=== PATIENT | female | born 1990 | race Caucasian/White ===

== ENCOUNTER 2016-12-19 20:16 | Emergency (ER) | payer OTHER ==
[~2016-12-19] VITALS: Ht 172.7 cm; Wt 123.0 kg
[2016-12-19 20:21] VITALS: BP 181/104; PULSE 87; RESP 18; O2SAT 96
[2016-12-19] MEDS ORDERED: Lidocaine 1%-Epi 1:100,000 20 mL Inj ONE (21:37)
--- NOTE | 2016-12-19 21:41 | ED.REPORT ---
HPI-Hand Prob/Inj Date of Service Dec 19, 2016 ED Provider: Olegario Pena MD This is a 26 year old female with no known past medical history who presents to the emergency department for a left hand laceration. Patient states around 745 PM, she was cutting avacados with a serrated knife and cut herself on the left palm, just proximal to her 2nd digit. She has applied pressure to the wound, but she has been bleeding since then. She denies any numbness, weakness, swelling. She is still able to move all fingers with full range of motion. She has no personal or family history of bleeding disorders. Her last tetanus was around 10 years ago. her pain is currently 2/10 in severity, stinging in nature , without any radiation. Nursing Notes Stated Complaint: LEFT HAND LACERATION Chief Complaint: Laceration Nursing Notes Reviewed: Yes Allergies: Coded Allergies: Sulfa (Sulfonamide Antibiotics) (Verified Allergy, Intermediate, HIves, 12/19/16) General Time Seen by Provider: 21:15 Chief Complaint Hand injury left Hx Obtained From: Patient Past Medical History Past Medical History Denies Past Surgical History Oral reconstructive surgery Smoking History Never Smoker Social History Alcohol Use: "Social" Drug Use: Denies drug use Review of Systems Constitutional: Denies: Chills, Fatigue, Fever Musculoskeletal: Reports: Extremity pain, Denies: Extremity swelling, Joint pain, Joint swelling Skin: Denies Bruising, Denies Rash, Denies Swelling Neurologic: Denies: Dizziness, Lightheaded, Weakness Complete sys rev & neg: except as marked. Physical Exam Initial Vital Signs Vital Signs (First) Date Time Temp Pulse Resp B/P Pulse Ox O2 Delivery O2 Flow Rate FiO2 12/19/16 20:21 36.5 87 18 181/104 96 Initial VS: Reviewed General/Constitutional: Well-developed, Well-nourished Head / Eyes: Atraumatic, Normocephalic ENT: Mucous membranes moist, Conjunctiva normal, No scleral icterus Respiratory: Breath sounds normal, Clear to auscultation, No respiratory distress Cardiovascular: Regular rate & rhythm, Heart sounds normal, Intact distal pulses Extremities: Vascular intact, Neuro intact, No swelling Skin: Warm, Dry Neurologic: Alert, Oriented, Nonfocal Psychiatric: Mood/affect normal, Behavior normal, Normal thought content 2 cm laceration just proximal and lateral to MCP of 2nd digit with active bleeding. There is full range of motion of all fingers and 5/5 strength to all fingers. No numbness or swelling is noted. Procedures Laceration Management Time: 22:00 Procedure Performed by: ED physician, ED resident Consent / Setup / Site Prep: Consent from patient, Time-out performed, Hand hygiene observed, Stand sterile technique Wound Length: 2 cm Local Anesthesia: Lidocaine w epi 1% (3 ml) Digital Block: No Wound Preparation: Shurclens, Normal saline Debridement: None Irrigation: 100 cc Foreign Body Explore / Removal: Explored for foreign body Repair Skin: ___ O (5), Nylon # Sutures - Skin: 2 Suture Technique: Simple Post-Procedure / Complications: Antibiotic oint applied, Dressing applied, No complications, Tolerated procedure well, Patient stable Re-Eval/Medical Decision Med Decision/Clinical Course This is a 26 year old female who presents to the emergency department for a 2 cm left hand laceration suffered while cutting avacados with a serrated knife. Patient has no focal neurological deficits with full range of motion, good sensation and good strength to all fingers. The laceration is lateral to where the tendon would run, but looks like possibly caught a small artery. Decision to use lidocaine with epinephrine to help control the bleeding and to numb the hand for suturing. Placed 2 sutures. Patient tolerated procedure well without any complication. Tdap given. Discharge & Departure Primary Impression: Laceration Disposition: Home Discharge Condition All VS Reviewed: Yes Condition: Stable Patient Instructions: Care For Your Stitches (GEN) Additional Instructions: In the emergency department you had 2 sutures placed for your laceration to your left hand. If you start to become numb, are unable to move your fingers, see pus or develop significant tenderness to the wound site, return to the emergency department. Otherwise, follow up with your primary care provider in 7- 10 days to have your stitches removed. Referrals: Dejah Perrin (PCP) Attending Statement The patient was seen and examined together with Dr. Blackwell and I agree with the history, exam and plan as outlined in the note above. copies to: Dejah Perrin Malik A DO Dec 19, 2016 21:41 Olegario Pena MD Dec 19, 2016 22:38
[2016-12-19] MEDS ORDERED: TdaP Vaccine 0.5 mL Inj IM ONE (22:30)
[2016-12-19 23:15] VITALS: BP 158/105; PULSE 69; RESP 16; O2SAT 99
== END 2016-12-19 23:07 | disposition home or self-care (01) ==
LOC: SED 20:19
DX: S61.412A Laceration without foreign body of left hand, initial encounter (principal); W26.0XXA Contact with knife, initial encounter; Y93.G1 Activity, food preparation and clean up; Y99.8 Other external cause status; Y92.000 Kitchen of unspecified non-institutional (private) residence as the place of occurrence of the external cause; Z23 Encounter for immunization; Z88.2 Allergy status to sulfonamides

== ENCOUNTER 2017-01-10 12:46 | Emergency (ER) | payer OTHER ==
[~2017-01-10] VITALS: Ht 172.7 cm; Wt 122.7 kg
[2017-01-10 12:50] VITALS: BP 147/92; PULSE 107; RESP 16; O2SAT 99
--- NOTE | 2017-01-10 13:10 | ED.REPORT ---
HPI-Abd Pain F Under 40 Date of Service Jan 10, 2017 ED Provider: Henry Santiago MD The pt is a 26 y/o female presenting to the ED c/o LLQ abdominal pain onset 2 days ago. The pain is described as intermittent and sharp. She also reports increased shakiness. Denies vaginal bleeding, fevers, diarrhea, constipation, dysuria, nausea or vomiting. The pt reports having a known ovarian cyst for the last 6 months which she suspects is causing her pain. She reports that there is no chance of her being but her and her partner have been trying for years. Nursing Notes Stated Complaint: OVARIAN CYST PAIN Chief Complaint: LLQ pain Nursing Notes Reviewed: Yes Allergies: Coded Allergies: Sulfa (Sulfonamide Antibiotics) (Verified Allergy, Intermediate, HIves, ) General Time Seen by MD: 13:05 Chief Complaint Other (LLQ pain ) Hx Obtained From: Patient Arrived By: Walk-in Sudden in Onset?: Yes Onset Occurred: 2 days ago Symptom Duration: Intermittent Recent Healthcare: No recent doctor visit, No recent hospitalization Similar Sx Previous: No Past Medical History Past Medical History Ovarian cyst Past Surgical History Oral reconstructive surgery Smoking History Never Smoker Social History Alcohol Use: "Social" Drug Use: Denies drug use Other Social History: Good social support Review of Systems Constitutional: Denies: Fever GI: Reports: Abdominal pain (LLQ ), Denies: Constipation, Diarrhea, Nausea, Vomiting Female: Denies: Dysuria, Vaginal bleeding - abnl Complete sys rev & neg: except as marked. Neurologic: Reports: Shaking Physical Exam Initial Vital Signs Vital Signs (First) Date Time Temp Pulse Resp B/P Pulse Ox O2 Delivery O2 Flow Rate FiO2 01/10/17 12:50 36.9 107 16 147/92 99 Room Air Initial VS: Reviewed Head / Eyes: Atraumatic, Normocephalic, PERRL ENT: Mucous membranes moist, Conjunctiva normal, No scleral icterus Neck: Supple, Non-tender, Full range of motion Extremities: Vascular intact, Neuro intact, No swelling, No tenderness Skin: Warm, Dry, No cyanosis Neurologic: Alert, Oriented, Nonfocal Psychiatric: Mood/affect normal, Behavior normal, Normal thought content General/Constitutional: Awake, Alert Respiratory / Chest: Atraumatic, Breath sounds NL, Breath sounds = bilat Cardiovascular: Heart rate NL, Regular rhythm, Heart sounds NL Abdomen: Soft Mild LLQ tenderness w/o rebound or guarding Back: Atraumatic, Inspection NL, Full range of motion Interpretation & Diagnostics US Pelvic and Transvag Impression: No acute findings Lab Results Interpretation Result Diagram: 01/10/17 1330 01/10/17 1330 Test 01/10/17 13:30 White Blood Count 11.2th/mm3 (3.8-10.1) Red Blood Count 4.71mil/mm3 (3.90-5.20) Hemoglobin 13.6g/dL (12.0-15.6) Hematocrit 41.2% (35.0-46.0) Mean Corpuscular Volume 87.5fL (81-100) Mean Corpuscular Hemoglobin 28.9pg (27.0-35.0) Mean Corpuscular Hemoglobin Concent 33.0% (32.0-37.0) Red Cell Distribution Width 13.2% (12.3-15.4) Platelet Count 331bil/L (150-400) Neutrophils (%) (Auto) 65.2% (40-74) Lymphocytes (%) (Auto) 27.2% (14-46) Monocytes (%) (Auto) 5.4% (4-12) Eosinophils (%) (Auto) 1.5% (0-5) Basophils (%) (Auto) 0.3% (0-3) Hold Urine Received (Received) Sodium Level 138mEq/L (134-144) Potassium Level 4.2mEq/L (3.5-5.2) Chloride Level 99mEq/L (97-108) Carbon Dioxide Level 24mmol/L (18-29) Blood Urea Nitrogen 12mg/dL (6-20) Creatinine 0.86mg/dL (0.57-1.00) Estimat Glomerular Filtration Rate 113mL/min (>59) Glucose Level 153mg/dL (60-99) Calcium Level 9.8mg/dL (8.5-10.1) Magnesium Level 1.8mg/dL (1.6-2.6) Total Bilirubin 0.4mg/dL (0.0-1.2) Aspartate Amino Transf (AST/SGOT) 36U/L (0-50) Alanine Aminotransferase (ALT/SGPT) 41U/L (0-32) Alkaline Phosphatase 87U/L (25-150) Total Protein 7.5g/dL (6.4-8.4) Albumin 4.4g/dL (3.4-5.0) Lipase 27U/L (13-60) Re-Eval/Medical Decision Med Decision/Clinical Course Med Decision/Clinical Course: 26-year-old female with history of ovarian cysts presenting with left lower quadrant pain. She feels like this is her ovarian cyst. Intermittent pain for several days. Mild left lower quadrant tenderness. Her labs are unremarkable. Urine is negative for . Urine does not suggest infection. Her vital signs are stable. Pelvic ultrasound shows good flow to the left ovary small left ovarian cyst. Her white blood cell count is mildly elevated low suspicion diverticulitis. She does not want a CT scan at this time and I do not believe this is necessary. She will return if symptoms worsen, fevers, nausea vomiting any other new or worsening symptoms. Likely due to her ovarian cyst. Discussed the patient she will discharged home with return precautions. Source of Hx: Old records Re-Evaluation/Progress : Time of Eval: 15:18 Re-Evaluation/Progress Note: Pt rechecked. Pt's pain has resolved. Informed pt of plan for treatment. Pt understands and agrees with plan for treatment. F/U instructions and RTER warnings given. All questions addressed. Counseled Regarding: Diagnosis, Lab results, Need for follow-up, When/why to return to ED Discharge & Departure Primary Impression: LLQ pain Additional Impression: Ovarian cyst Laterality: left Qualified Code: N83.202 - Unspecified ovarian cyst, left side Disposition: Home Discharge Condition All VS Reviewed: Yes Condition: Stable Additional Instructions: Thank for you entrusting us with your care today. Your labs, urine, and ultrasound showed no signs of torsion, diverticulitis, a urinary tract infection or anything else dangerous or life threatening. You may take Ibuprofen as needed for the pain. Please return to the emergency department if you experience reoccurring severe abdominal pain, fevers, vomiting, or any new or worsening symptoms. I'm glad you are feeling better. Referrals: Dejah Perrin (PCP) Scribe Attestation Portions of this note were transcribed by Devon Hector. I, Dr. Santiago personally performed the history, physical exam and medical decision-making; I reviewed and confirmed the accuracy of the information in the transcribed note. copies to: Dejah Perrin Ben M MD Jan 10, 2017 13:10 Devon Hector Jan 10, 2017 13:19
[2017-01-10] MEDS ORDERED: Ondansetron 2 mg/mL 2 mL Inj IVPUSH PRN (13:15)
[2017-01-10 13:37] LABS: BASOPHILS % (AUTO) 0.3 % (0-3); EOSINOPHILS % (AUTO) 1.5 % (0-5); MONOCYTES % (AUTO) 5.4 % (4-12); Mean Corpuscular Hemoglobin 28.9 pg (27.0-35.0); Mean Corpuscular Volume 87.5 fL (81-100); NEUTROPHILS % (AUTO) 65.2 % (40-74); Platelet Count 331 bil/L (150-400)
[2017-01-10 14:01] LABS: Magnesium 1.8 mg/dL (1.6-2.6)
[2017-01-10 15:31] VITALS: BP 142/91; PULSE 76; RESP 16; O2SAT 96
[2017-01-10 15:32] VITALS: BP 142/91; PULSE 76; RESP 16; O2SAT 96
--- NOTE | 2017-01-12 17:00 | DRSVH ---
PROCEDURE: US PELVIC SONOGRAM + TRANSVAGINAL SONOGRAM INDICATIONS: LLQ pain r/o torsion TECHNIQUE: Real-time scanning was performed of the pelvic organs, with image documentation. Additional endovagi nal scanning was necessary due to incomplete visualization of the adnexal and endometrial structures by transabdominal scanning. COMPARISON: None. FINDINGS: (orthogonal measurements) Uterus size: 7.90 cm, 3.79 cm, 5.43 cm Endometrium thickness: 9.50 mm Right ovary size: 4.59 cm, 1.85 cm, 2.25 cm Left ovary size: 2.91 cm, 4.07 cm, 2.24 cm Transabdominal scanning: Limited scanning through the kidneys shows no hydronephrosis. No pathologi c free abdominal or pelvic fluid. Endovaginal scanning: Uterus: Uterus is normal in size and appearance. Endometrium is within normal physiologic limits. Ovaries: Within normal physiologic limits. Simple cyst involves the left ovary measure roughly 25 m m. Doppler assessment demonstrates normal arterial and venous flow bilaterally. IMPRESSION: 1. No source for pelvic pain identified sonographically. Dictated by: Humza VERAS Interpreted: Ramonita Schmitt MD on 01/10/2017 at 15:27 Approved by: Ramonita Schmitt M.D. on 01/12/2017 at 16:59
== END 2017-01-10 15:38 | disposition home or self-care (01) ==
LOC: SED 12:46
DX: R10.32 Left lower quadrant pain (principal); N83.202 Unspecified ovarian cyst, left side; Z88.2 Allergy status to sulfonamides
CPT/HCPCS: 36415; 76830; 76856; 80053; 81025; 83690; 83735; 85025; 96374; 96375; 99285; J2270; J2405